=== PATIENT | male | born 1960 | race Caucasian/White ===

== ENCOUNTER 2020-11-18 13:11 | Emergency (ER) | payer OTHER ==
[2020-11-18 13:21] VITALS: RESP 18; TEMP 97.5
[2020-11-18] MEDS ORDERED: SODIUM CHLORIDE 0.9% 1,000 ML IV ONE (13:35)
--- NOTE | 2020-11-18 13:39 | ED ---
General Adult HPI - General Source: patient, EMS, RN notes reviewed, old records reviewed Mode of arrival: EMS Limitations: altered mental status <Warren Martínez - Last Filed: 11/18/20 13:36> <Warren Levi - Last Filed: 11/18/20 18:36> - General Chief complaint: Alcohol Stated complaint: ETOH Time Seen by Provider: 11/18/20 13:15 - History of Present Illness Initial comments: 60-year-old male presenting with alcohol intoxication. Patient was sent from the admission team at [facility]. He had an alcohol level over 300 and was sent for evaluation the emergency department. States that he drinks approximately one and a half fifths of alcohol daily. He admits to drinking today. He denies suicidal or homicidal ideation. He states he does want to go to rehab. No physical complaints. No vomiting. No abdominal pain. No chest pain. (Warren Martínez) Review of Systems ROS Other: All systems not noted in ROS Statement are negative. <Warren Martínez - Last Filed: 11/18/20 13:36> ROS Other: All systems not noted in ROS Statement are negative. <Warren Levi - Last Filed: 11/18/20 18:36> ROS Statement: Those systems with pertinent positive or pertinent negative responses have been documented in the HPI. Past Medical History History of Any Multi-Drug Resistant Organisms: None Reported Past Psychological History: No Psychological Hx Reported Smoking Status: Current every day smoker Past Alcohol Use History: Heavy Past Drug Use History: None Reported <Warren Martínez - Last Filed: 11/18/20 13:36> General Exam Limitations: altered mental status General appearance: appears intoxicated Head exam: Present: atraumatic, normocephalic Eye exam: Present: normal appearance, PERRL ENT exam: Present: normal exam Neck exam: Present: normal inspection. Absent: tenderness, meningismus Respiratory exam: Present: normal lung sounds bilaterally. Absent: respiratory distress, wheezes Cardiovascular Exam: Present: regular rate, normal rhythm GI/Abdominal exam: Present: soft. Absent: distended, tenderness, guarding Extremities exam: Present: normal inspection, normal capillary refill. Absent: pedal edema Neurological exam: Present: alert, oriented X3. Absent: motor sensory deficit Psychiatric exam: Present: normal affect, normal mood. Absent: suicidal ideation Skin exam: Present: warm, dry, intact. Absent: cyanosis, diaphoretic <Warren Martínez - Last Filed: 11/18/20 13:36> Course Vital Signs 11/18/20 11/18/20 11/18/20 13:14 14:21 15:00 Temperature 97.5 F L Pulse Rate 81 Respiratory 18 18 18 Rate Blood Pressure 128/86 O2 Sat by Pulse 95 Oximetry 11/18/20 11/18/20 11/18/20 16:00 17:00 18:00 Temperature Pulse Rate Respiratory 18 18 18 Rate Blood Pressure O2 Sat by Pulse Oximetry 11/18/20 18:25 Temperature Pulse Rate 73 Respiratory 18 Rate Blood Pressure 132/76 O2 Sat by Pulse 95 Oximetry Medical Decision Making <Warren Martínez - Last Filed: 11/18/20 13:36> <Warren Levi - Last Filed: 11/18/20 18:36> - Medical Decision Making We did discuss case with [facility] who will accept the patient with an alcohol level around 200. He has an alcohol level of 286 in the emergency department. He's given IV fluids and observed awaiting this blood alcohol level. We will transferred back to [facility] for alcohol rehabilitation. (Warren Martínez) The breath alcohol test came down to 194. The rehabilitation Center is agreeable to taking the patient at this point in time. He will be discharged with instructions regarding alcohol abuse and is counseled regarding alcohol abuse. (Warren Levi) Disposition Is patient prescribed a controlled substance at d/c from ED?: No Time of Disposition: 16:00 - Out of Hospital Transfer - Req. Specs Out of Hospital Transfer - Requested Specifics: Other Non-Acute (Patient transferred back to [facility]) <Warren Martínez - Last Filed: 11/18/20 13:36> Is patient prescribed a controlled substance at d/c from ED?: No Time of Disposition: 18:36 <Warren Levi - Last Filed: 11/18/20 18:36> Clinical Impression: Alcoholic intoxication, Alcohol abuse Disposition: OTHER INSTITUTION NOT DEFINED Condition: Stable Instructions (If sedation given, give patient instructions): Alcohol Intoxication (ED) Additional Instructions: We recommend that you go directly to rehabilitation for alcohol abuse. Referrals: None,Stated [Primary Care Provider] - 1-2 days Sierra Coto MD [REFERRING] - 1-2 days
[2020-11-18 18:26] VITALS: BP 132/76; PULSE 73
== END 2020-11-18 18:39 | disposition other institution (70) ==
LOC: EC 13:11
DX: F10.129 Alcohol abuse with intoxication, unspecified (principal); F17.200 Nicotine dependence, unspecified, uncomplicated
CPT/HCPCS: 82075; 96360; 99285

== ENCOUNTER 2020-11-19 13:58 | Emergency (ER) | payer OTHER ==
[2020-11-19] MEDS ORDERED: SODIUM CHLORIDE 0.9% 500 ML 500 ML IV STA (14:57)
[2020-11-19] MEDS ORDERED: LORazepam 2 MG/ML INJ IV STA (15:09)
--- NOTE | 2020-11-19 15:12 | ED ---
General Adult HPI - General Chief complaint: Recheck/Abnormal Lab/Rx Stated complaint: SOB Time Seen by Provider: 11/19/20 14:10 Source: patient, RN notes reviewed Mode of arrival: ambulatory Limitations: no limitations - History of Present Illness Initial comments: 60-year-old male presents to the emergency room for a chief complaint of hypoxia. Patient is detoxing from alcohol and Suboxone at [facility] [place]. Patient states he has not had these since yesterday morning. Patient was sent to the emergency room yesterday for acute alcohol intoxication. Today at [facility] the nurse reports the patient's oxygen at times has been in the 80s and that he has been walking around somewhat confused. States they think it is from his withdrawal but they wanted him evaluated for any medical problems. Patient is denying any complaints at this time. States he feels well. Patient is well- appearing alert and oriented satting at 95% oxygen.Patient has no other complaints at this time including shortness of breath, chest pain, abdominal pain, nausea or vomiting, headache, or visual changes. - Related Data Home Medications Medication Instructions Recorded Confirmed Buprenorphine HCl/Naloxone HCl 0.5 film SUBLINGUAL TID 11/18/20 11/19/20 [Suboxone 8 mg-2 mg Sl Film] Allergies Allergy/AdvReac Type Severity Reaction Status Date / Time No Known Allergies Allergy Verified 11/19/20 14:42 Review of Systems ROS Statement: Those systems with pertinent positive or pertinent negative responses have been documented in the HPI. ROS Other: All systems not noted in ROS Statement are negative. Past Medical History Past Medical History: No Reported History History of Any Multi-Drug Resistant Organisms: None Reported Past Surgical History: Hernia Repair Additional Past Surgical History / Comment(s): hernie repair age 13. Past Psychological History: No Psychological Hx Reported Smoking Status: Current every day smoker Past Alcohol Use History: Abuse, Daily, Heavy Past Drug Use History: Opiates, Prescription Drug Abuse General Exam Limitations: no limitations General appearance: alert, in no apparent distress, other (Slight tremors) Head exam: Present: atraumatic Eye exam: Present: normal appearance, PERRL, EOMI. Absent: scleral icterus ENT exam: Present: normal exam, mucous membranes moist Neck exam: Present: normal inspection, full ROM. Absent: tenderness Respiratory exam: Present: normal lung sounds bilaterally. Absent: respiratory distress Cardiovascular Exam: Present: regular rate, normal rhythm, normal heart sounds GI/Abdominal exam: Present: soft, normal bowel sounds. Absent: distended, tenderness, guarding, rebound, rigid Neurological exam: Present: alert, oriented X3 Course Vital Signs 11/19/20 11/19/20 14:01 15:25 Temperature 98.7 F Pulse Rate 88 Respiratory 18 16 Rate Blood Pressure 160/97 O2 Sat by Pulse 95 Oximetry EKG Findings - EKG Comments: EKG Findings:: Normal sinus rhythm, ventricular rate 68, UT interval 154, QTC 429 Medical Decision Making - Medical Decision Making Vitals are stable. Patient is well-appearing. He is oxygenating well in the emergency room. However given rehab facility is concerned dyspnea workup was obtained. CBC CMP unremarkable. Transaminitis likely secondary to chronic alcoholism. D-dimer is 0.8. Chest CTA shows no acute PE or other cardiopulmonary abnormality. Chronic left ninth rib fracture noted. Patient was given Valium. Patient is stable for discharge home back to rehab facility. He will return here for any worsening symptoms.. X-ray did show possible rib fractures however no tenderness to palpation and CT was negative for acute fracture. - Lab Data Result diagrams: 11/19/20 15:33 11/19/20 15:33 Lab Results 11/19/20 11/19/20 11/19/20 Range/Units 15:33 15:33 15:33 WBC 4.7 (3.8-10.6) k/uL RBC 4.61 (4.30-5.90) m/uL Hgb 14.8 (13.0-17.5) gm/dL Hct 44.4 (39.0-53.0) % MCV 96.2 (80.0-100.0) fL MCH 32.0 (25.0-35.0) pg MCHC 33.3 (31.0-37.0) g/dL RDW 12.8 (11.5-15.5) % Plt Count 213 (150-450) k/uL MPV 6.8 Neutrophils % 78 % Lymphocytes % 13 % Monocytes % 6 % Eosinophils % 1 % Basophils % 0 % Neutrophils # 3.6 (1.3-7.7) k/uL Lymphocytes # 0.6 L (1.0-4.8) k/uL Monocytes # 0.3 (0-1.0) k/uL Eosinophils # 0.0 (0-0.7) k/uL Basophils # 0.0 (0-0.2) k/uL PT 10.2 (9.0-12.0) sec INR 0.9 (<1.2) APTT 24.2 (22.0-30.0) sec D-Dimer 0.80 H (<0.60) mg/L FEU Sodium 137 (137-145) mmol/L Potassium 5.2 H (3.5-5.1) mmol/L Chloride 103 (98-107) mmol/L Carbon Dioxide 30 (22-30) mmol/L Anion Gap 4 mmol/L BUN 13 (9-20) mg/dL Creatinine 0.73 (0.66-1.25) mg/dL Est GFR (CKD-EPI)AfAm >90 (>60 ml/min/1.73 sqM) Est GFR (CKD-EPI)NonAf >90 (>60 ml/min/1.73 sqM) Glucose 122 H (74-99) mg/dL Calcium 9.5 (8.4-10.2) mg/dL Magnesium 2.0 (1.6-2.3) mg/dL Total Bilirubin 1.1 (0.2-1.3) mg/dL AST 122 H (17-59) U/L ALT 138 H (4-49) U/L Alkaline Phosphatase 47 (38-126) U/L Troponin I (0.000-0.034) ng/mL NT-Pro-B Natriuret Pep pg/mL Total Protein 7.3 (6.3-8.2) g/dL Albumin 4.4 (3.5-5.0) g/dL Serum Alcohol <10 mg/dL Coronavirus (PCR) (Not Detectd) 11/19/20 11/19/20 11/19/20 Range/Units 15:33 15:33 15:33 WBC (3.8-10.6) k/uL RBC (4.30-5.90) m/uL Hgb (13.0-17.5) gm/dL Hct (39.0-53.0) % MCV (80.0-100.0) fL MCH (25.0-35.0) pg MCHC (31.0-37.0) g/dL RDW (11.5-15.5) % Plt Count (150-450) k/uL MPV Neutrophils % % Lymphocytes % % Monocytes % % Eosinophils % % Basophils % % Neutrophils # (1.3-7.7) k/uL Lymphocytes # (1.0-4.8) k/uL Monocytes # (0-1.0) k/uL Eosinophils # (0-0.7) k/uL Basophils # (0-0.2) k/uL PT (9.0-12.0) sec INR (<1.2) APTT (22.0-30.0) sec D-Dimer (<0.60) mg/L FEU Sodium (137-145) mmol/L Potassium (3.5-5.1) mmol/L Chloride (98-107) mmol/L Carbon Dioxide (22-30) mmol/L Anion Gap mmol/L BUN (9-20) mg/dL Creatinine (0.66-1.25) mg/dL Est GFR (CKD-EPI)AfAm (>60 ml/min/1.73 sqM) Est GFR (CKD-EPI)NonAf (>60 ml/min/1.73 sqM) Glucose (74-99) mg/dL Calcium (8.4-10.2) mg/dL Magnesium (1.6-2.3) mg/dL Total Bilirubin (0.2-1.3) mg/dL AST (17-59) U/L ALT (4-49) U/L Alkaline Phosphatase (38-126) U/L Troponin I <0.012 (0.000-0.034) ng/mL NT-Pro-B Natriuret Pep 88 pg/mL Total Protein (6.3-8.2) g/dL Albumin (3.5-5.0) g/dL Serum Alcohol mg/dL Coronavirus (PCR) Not Detected (Not Detectd) Disposition Clinical Impression: Alcohol withdrawal Disposition: HOME SELF-CARE Condition: Good Instructions (If sedation given, give patient instructions): Alcohol Withdrawal (ED) Additional Instructions: Please continue to monitor patient. For any worsening symptoms refer him back to the emergency room. Is patient prescribed a controlled substance at d/c from ED?: No Referrals: None,Stated [Primary Care Provider] - 1-2 days Time of Disposition: 17:30
[2020-11-19 15:27] VITALS: RESP 16
[2020-11-19 15:50] LABS: Basophils % (A) 0 %; Eosinophils % (A) 1 %; HCT 44.4 % (39.0-53.0); HGB 14.8 gm/dL (13.0-17.5); Lymphocytes # (A) 0.6 k/uL (1.0-4.8); Lymphocytes % (A) 13 %; MCHC 33.3 g/dL (31.0-37.0); MCV 96.2 fL (80.0-100.0); Mean Platelet Volume 6.8; Monocytes # (A) 0.3 k/uL (0-1.0); Monocytes % (A) 6 %; Neutrophils # (A) 3.6 k/uL (1.3-7.7); Neutrophils % (A) 78 %; Platelet Count 213 k/uL (150-450); RBC 4.61 m/uL (4.30-5.90); RDW 12.8 % (11.5-15.5); WBC 4.7 k/uL (3.8-10.6)
--- NOTE | 2020-11-19 15:50 | XR ---
EXAMINATION TYPE: XR chest 2V DATE OF EXAM: 11/19/2020 COMPARISON: None HISTORY: 60 year-old male shortness of breath, difficulty breathing TECHNIQUE: PA and lateral views FINDINGS: The cardiomediastinal silhouette, aorta, and pulmonary vasculature are within normal limits. Hyperinf lation. Mild interstitial prominence. Minimal anterior wedging of a lower thoracic vertebral body. So me callus along the left lateral 10th rib. Possible subtle minimally offset fracture of the right lat eral 10th rib. IMPRESSION: 1. COPD. No acute process seen. 2. Either a subacute or chronic fracture deformity left lateral 10th rib. Correlate for point tendern ess to exclude a more acute fracture of the right lateral 10th rib. The image is marked.
[2020-11-19 16:12] LABS: ALT 138 U/L (4-49); AST 122 U/L (17-59); African American GFR (CKD) >90 (>60 ml/min/1.73 sqM); Albumin 4.4 g/dL (3.5-5.0); Alcohol <10 mg/dL; Alkaline Phosphatase 47 U/L (38-126); Anion Gap 4 mmol/L; Blood Urea Nitrogen 13 mg/dL (9-20); Calcium 9.5 mg/dL (8.4-10.2); Carbon Dioxide 30 mmol/L (22-30); Chloride 103 mmol/L (98-107); Glucose 122 mg/dL (74-99); Non-African American GFR(CKD) >90 (>60 ml/min/1.73 sqM); Potassium 5.2 mmol/L (3.5-5.1); Sodium 137 mmol/L (137-145); Total Bilirubin 1.1 mg/dL (0.2-1.3); Total Protein 7.3 g/dL (6.3-8.2)
[2020-11-19 16:13] LABS: INR 0.9 (<1.2); Partial Thromboplastin Time 24.2 sec (22.0-30.0); Prothrombin Time 10.2 sec (9.0-12.0)
--- NOTE | 2020-11-19 17:12 | CT ---
EXAMINATION TYPE: CT chest angio for PE DATE OF EXAM: 11/19/2020 COMPARISON: Same-day radiograph. HISTORY: Patient poor historian. CT DLP: 321.1 mGycm Automated exposure control for dose reduction was used. CONTRAST: CT Chest for pulmonary embolism performed with with IV Contrast, patient injected with 100 mL of Isov ue 300. FINDINGS: LUNGS: The lungs are grossly clear, there is no concerning parenchymal mass or nodule identified. T here is no pleural effusion or pneumothorax seen. The tracheobronchial tree is patent. MEDIASTINUM: There is satisfactory enhancement of the pulmonary artery and its branches, there is no CT evidence for pulmonary embolism. There are no greater than 1 cm hilar or mediastinal lymph nodes. No pericardial effusion is seen. OTHER: No additional acute abnormality is seen. Hepatic steatosis and chronic appearing moderate T12 compression deformity noted. Also chronic left ninth rib fracture. IMPRESSION: No acute PE or other cardiopulmonary abnormality.
[2020-11-19] MEDS ORDERED: DIAZEPAM 5 MG/ML 2 ML INJ IVP STA (17:27)
[2020-11-19 17:40] VITALS: BP 148/82; PULSE 90; TEMP 98.1
== END 2020-11-19 17:55 | disposition home or self-care (01) ==
LOC: EC 13:58
DX: F10.239 Alcohol dependence with withdrawal, unspecified (principal); R74.01 Elevation of levels of liver transaminase levels; R06.02 Shortness of breath; Z20.822 Contact with and (suspected) exposure to COVID-19; F17.200 Nicotine dependence, unspecified, uncomplicated
CPT/HCPCS: 36415; 93005; 85379; 83880; 80053; 83735; 84484; 85025; 85610; 85730; 87635; 71046; 71275; 99285; 96374; 96375; G0480; J2060; J3360; Q9967; 80320